=== PATIENT | female | born 1945 | race Caucasian/White ===

== ENCOUNTER 2021-12-05 03:32 | Inpatient (IN) | payer MEDICARE, OTHER ==
[~2021-12-05] VITALS: Ht 182.8 cm; Wt 101.7 kg
[2021-12-05] MEDS ORDERED: MELO15TA39 (03:43)
[2021-12-05] MEDS ORDERED: SIMV20TA26 (03:43)
[2021-12-05] MEDS ORDERED: METO50TA7 (03:43)
[2021-12-05] MEDS ORDERED: AMOX1TAB12 (03:43)
[2021-12-05] MEDS ORDERED: FURO20TA4 (03:43)
[2021-12-05] MEDS ORDERED: FERR325T24 (03:43)
[2021-12-05] MEDS ORDERED: RAMI10CA69 (03:43)
[2021-12-05] MEDS ORDERED: ASPIRIN 81 MG CHEW (CHILDREN'S ASA) PO ONE (03:45)
--- NOTE | 2021-12-05 03:51 | ED Cardiac General ---
History of Present Illness General Chief Complaint: Cardiac/General Problems Stated Complaint: RACING HR Nursing Triage Note: C/O RAPID HR X90MIN WAKING PT UP FROM SLEEP. Source: patient History of Present Illness Date Seen by Provider: Dec 05, 2021 Initial Comments PT ARRIVES VIA POV FROM HOME WITH STATES ABOUT 90 MINUTES AGO, SHE WOKE UP WITH A RAPID HEART RATE NO HISTORY OF SIMILAR, HAS HTN, BUT NO OTHER HISTORY OF CARDIAC PROBLEMS AND HAS NEVER SEEN A CARD IOLOGIST. NO CHEST PAIN NO SHORTNESS OF BREATH NO SWEATS NO DIZZINESS OR SYNCOPE NO GI SYMPTOMS NO CHANGE IN CHRONIC LEG SWELLING PT DID TEST POSITIVE FOR COVID 1 1/2 WEEKS AGO WAS PRESCRIBED PAXLOVID ON 11/26/21 AND COMPLETED THE TREATMENT, THE AUGMENTIN 11/28/21 "FOR SINUSES" STATES SHE STOPPED TAKING THE AUGMENTIN AFTER A FEW DAYS, AND IS NOT TAKING ANY OVER THE COUNTER SINUS/ALLERGY/COLD MEDICATIONS. WAS SEEN AT [facility]/WALK IN [facility]INIC INITIALLY--HAD FEVER AND COUGH/CONGESTION. RX FOR THE AUGMENTIN WAS CALLED IN BY [facility]. SHE STATES ALL THOSE SYMPTOMS HAVE SINCE RESOLVED ALSO WAS ILL AND TESTED +, HIS SYMPTOMS HAVE ALSO RESOLVED PT HAS HAD COVID-19 VACCINE X 4. ASA po SEED SPECIALIST: No PCP: DR. GROSS [place] Allergies and Home Medications Allergies Coded Allergies: codeine (Verified Allergy, Unknown, 12/05/21) Patient Home Medication List Amoxicillin/Potassium Clav (Amox Tr-K Clv 875-125 mg Tab) 875 Mg-125 Mg Tablet, (Reported) Entered as Reported by: MEI DUGGAN on 12/05/21342 Last Action: New Order Ferrous Sulfate (Ferosul) 325 Mg (65 Mg Iron) Tablet, (Reported) Entered as Reported by: MEI DUGGAN on 12/05/21342 Last Action: New Order Furosemide (Furosemide) 20 Mg Tablet, (Reported) Entered as Reported by: MEI DUGGAN on 12/05/21342 Last Action: New Order Meloxicam (Meloxicam) 15 Mg Tablet, (Reported) Entered as Reported by: MEI DUGGAN on 12/05/21342 Last Action: New Order Metoprolol Succinate (Metoprolol Succinate) 50 Mg Tab.er.24h, (Reported) Entered as Reported by: MEI DUGGAN on 12/05/21342 Last Action: New Order Ramipril (Ramipril) 10 Mg Capsule, (Reported) Entered as Reported by: MEI DUGGAN on 12/05/21342 Last Action: New Order Simvastatin (Simvastatin) 20 Mg Tablet, (Reported) Entered as Reported by: MEI DUGGAN on 12/05/21342 Last Action: New Order Review of Systems Review of Systems Constitutional: no symptoms reported; No diaphoresis, No dizziness, No malaise, No weakness EENTM: No Symptoms Reported Respiratory: No Symptoms Reported; Denies Shortness of Air Cardiovascular: See HPI; Denies Chest Pain; Irregular Heart Rate; Denies Lightheadedness; Palpitations Gastrointestinal: No Symptoms Reported Genitourinary: No Symptoms Reported Musculoskeletal: no symptoms reported Skin: no symptoms reported Psychiatric/Neurological: No Symptoms Reported Endocrine: No Symptoms Reported Hematologic/Lymphatic: No Symptoms Reported Past Leieoeq-Shkhuf-Paythq Hx Patient Social History Tobacco Use?: No Substance use?: No Alcohol Use?: No Pt feels they are or have been: No Immunizations Up To Date Second COVID19 Vaccination Aniceto: X2 Past Medical History Surgery/Hospitalization HX: HTN, HIGH CHOLESTEROL Respiratory: No Cardiac: Yes Chronic Edema/Swelling, High Cholesterol, Hypertension Neurological: No Genitourinary: No Gastrointestinal: No Musculoskeletal: No Endocrine: No HEENT: No Cancer: No Psychosocial: No Integumentary: No Blood Disorders: Yes (ANEMIA) Physical Exam Vital Signs Vital Signs - First Documented 12/05/21 03:37 Temp 36.7 Pulse 118 Resp 16 B/P (MAP) 178/90 (119) Pulse Ox 97 O2 Delivery Room Air Capillary Refill : Less Than 3 Seconds Height, Weight, BMI Height: '" Weight: lbs. oz. kg; 28.00 BMI Method: General Appearance: No Apparent Distress, WD/WN, Anxious HEENT: PERRL/EOMI Neck: Full Range of Motion, Normal Inspection, Non Tender, Supple; No Carotid Bruit, No JVD Respiratory: Normal Breath Sounds, No Accessory Muscle Use, No Respiratory Distress Cardiovascular: No Edema, No JVD, No Murmur, Normal Peripheral Pulses, Irreg ularly Irregular, Tachycardia Gastrointestinal: Non Tender, Soft Extremity: Normal Capillary Refill, Normal Inspection, Normal Range of Motion, Non Tender, No Calf Tenderness, No Pedal Edema Neurologic/Psychiatric: Alert, Oriented x3, No Motor/Sensory Deficits, 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, Other (MILDLY ANXIOUS) Skin: Normal Color, Warm/Dry Progress/Results/Core Measures Results/Orders Lab Results Laboratory Tests Test 12/05/21 03:47 Range/Units White Blood Count 9.4 4.3-11.0 10^3/uL Red Blood Count 4.30 3.80-5.11 10^6/uL Hemoglobin 12.6 11.5-16.0 g/dL Hematocrit 37 35-52 % Mean Corpuscular Volume 85 80-99 fL Mean Corpuscular Hemoglobin 29 25-34 pg Mean Corpuscular Hemoglobin Concent 34 32-36 g/dL Red Cell Distribution Width 13.9 10.0-14.5 % Platelet Count 342 130-400 10^3/uL Mean Platelet Volume 9.4 9.0-12.2 fL Immature Granulocyte % (Auto) 1 % Neutrophils (%) (Auto) 66 42-75 % Lymphocytes (%) (Auto) 21 12-44 % Monocytes (%) (Auto) 7 0-12 % Eosinophils (%) (Auto) 5 0-10 % Basophils (%) (Auto) 1 0-10 % Neutrophils # (Auto) 6.2 1.8-7.8 10^3/uL Lymphocytes # (Auto) 2.0 1.0-4.0 10^3/uL Monocytes # (Auto) 0.7 0.0-1.0 10^3/uL Eosinophils # (Auto) 0.4 H 0.0-0.3 10^3/uL Basophils # (Auto) 0.1 0.0-0.1 10^3/uL Immature Granulocyte # (Auto) 0.1 0.0-0.1 10^3/uL Prothrombin Time 12.7 12.2-14.7 SEC INR Comment 0.9 0.8-1.4 Activated Partial Thromboplast Time 39 H 24-35 SEC D-Dimer 0.56 H 0.00-0.49 UG/ML Sodium Level 132 L 135-145 MMOL/L Potassium Level 3.6 3.6-5.0 MMOL/L Chloride Level 98 98-107 MMOL/L Carbon Dioxide Level 21 21-32 MMOL/L Anion Gap 13 5-14 MMOL/L Blood Urea Nitrogen 12 7-18 MG/DL Creatinine 1.00 0.60-1.30 MG/DL Estimat Glomerular Filtration Rate 59 BUN/Creatinine Ratio 12 Glucose Level 144 H 70-105 MG/DL Calcium Level 9.9 8.5-10.1 MG/DL Corrected Calcium 9.8 8.5-10.1 MG/DL Magnesium Level 1.8 1.6-2.4 MG/DL Total Bilirubin 0.5 0.1-1.0 MG/DL Aspartate Amino Transf (AST/SGOT) 25 5-34 U/L Alanine Aminotransferase (ALT/SGPT) 28 0-55 U/L Alkaline Phosphatase 61 40-136 U/L Troponin I < 0.028 <0.028 NG/ML B-Type Natriuretic Peptide 32.6 <100.0 PG/ML Total Protein 7.8 6.4-8.2 GM/DL Albumin 4.1 3.2-4.5 GM/DL TSH [place] Testing 1.24 0.35-4.94 UIU/ML My Orders Orders - LISANDRO ÁLVAREZ DO Ed Iv/Invasive Line Start (12/05/21 03:39) Ekg Tracing (12/05/21 03:39) O2 (12/05/21 03:39) Monitor-Rhythm Ecg Trace Only (12/05/21 03:39) Bnp Zachary (12/05/21 03:39) Cbc With Automated Diff (12/05/21 03:39) Comprehensive Metabolic Panel (12/05/21 03:39) Magnesium (12/05/21 03:39) Protime With Inr (12/05/21 03:39) Partial Thromboplastin Time (12/05/21 03:39) Thyroid Analyzer (12/05/21 03:39) Troponin I [place] (12/05/21 03:39) Chest 1 View, Ap/Pa Only (12/05/21 03:39) Fibrin Degradation Products (12/05/21 03:44) Aspirin Chewable Tablet (Baby Aspirin Ch (12/05/21 03:45) Enoxaparin Injection (Lovenox Injection) (12/05/21 04:00) Diltiazem Injection (Cardizem Injection) (12/05/21 04:00) Ed Iv/Invasive Line Start (12/05/21 03:49) Ns Iv 1000 Ml (Sodium Chloride 0.9%) (12/05/21 04:00) Ekg Tracing (12/05/21 04:03) Diltiazem Drip Pre-Mix (Cardizem Drip Pr (12/05/21 04:30) Ct Angio Chest W (12/05/21 04:35) Medications Given in ED Current Medications Medications Dose Ordered Sig/Carley Route Start Time Stop Time Status Last Admin Dose Admin Aspirin 324 mg ONCE ONCE PO 12/05/21 03:45 12/05/21 03:46 DC 12/05/21 03:55 324 MG Diltiazem HCl 20 mg ONCE ONCE IVP 12/05/21 04:00 12/05/21 04:01 DC 12/05/21 03:55 20 MG Enoxaparin Sodium 100 mg ONCE ONCE SC 12/05/21 04:00 12/05/21 04:01 DC 12/05/21 03:57 100 MG Vital Signs/I&O 12/05/21 12/05/21 03:37 03:55 Temp 36.7 Pulse 118 118 Resp 16 B/P (MAP) 178/90 (119) 178/90 Pulse Ox 97 O2 Delivery Room Air Blood Pressure Mean: 119 Progress Progress Note : Progress Note GIVEN ASPIRIN AND LOVENOX GIVEN CARDIZEM BOLUS Initial ECG Impression Date: Dec 05, 2021 Initial ECG Impression Time: 03:44 Initial ECG Rate: 118 Initial ECG Rhythm: A Fib/Flutter Initial ECG Impression: Nonspecific Changes, Atrial Fibrillation w/RVR Initial ECG Comparisson: No Previous ECG Available EKG : EKG Time: 04:37 Rate: 78 Rhythm: A Fib/Flutter Diagnostic Imaging Comments CXR--NO ACUTE PROCESS, PENDING RADIOLOGIST REVIEW Reviewed: Reviewed by Me Departure Impression Primary Impression: New onset atrial fibrillation Additional Impression: Atrial fibrillation with rapid ventricular response Departure-Patient Inst. Referrals: TERRA GROSS MD (PCP/Family) Primary Care Physician LISANDRO ÁLVAREZ DO Dec 05, 2021 03:51
[2021-12-05 03:55] VITALS: BP 178/90
[2021-12-05 03:55] LABS: BASOPHILS # (AUTO) 0.1 10^3/uL (0.0-0.1); BASOPHILS % (AUTO) 1 % (0-10); EOSINOPHILS # (AUTO) 0.4 10^3/uL (0.0-0.3); EOSINOPHILS % (AUTO) 5 % (0-10); HEMATOCRIT 37 % (35-52); HEMOGLOBIN 12.6 g/dL (11.5-16.0); LYMPHOCYTES % (AUTO) 21 % (12-44); MEAN CORPUSCULAR HEMOGLOBIN 29 pg (25-34); MEAN CORPUSCULAR HGB CONC 34 g/dL (32-36); MEAN CORPUSCULAR VOLUME 85 fL (80-99); MEAN PLATELET VOLUME 9.4 fL (9.0-12.2); MONOCYTES # (AUTO) 0.7 10^3/uL (0.0-1.0); MONOCYTES % (AUTO) 7 % (0-12); NEUTROPHILS # (AUTO) 6.2 10^3/uL (1.8-7.8); NEUTROPHILS % (AUTO) 66 % (42-75); PLATELET COUNT 342 10^3/uL (130-400); WHITE BLOOD COUNT 9.4 10^3/uL (4.3-11.0)
[2021-12-05] MEDS ORDERED: ENOXAPARIN 100 MG/1 ML (LOVENOX) SYR SC ONE (04:00)
[2021-12-05] MEDS ORDERED: NS IV 1000 ML 1,000 ML IV SCH ×2 (04:00→05:30)
[2021-12-05 04:07] LABS: ALBUMIN 4.1 GM/DL (3.2-4.5); CHLORIDE 98 MMOL/L (98-107); POTASSIUM 3.6 MMOL/L (3.6-5.0); SODIUM 132 MMOL/L (135-145)
[2021-12-05 04:09] LABS: CALCIUM 9.9 MG/DL (8.5-10.1)
[2021-12-05 04:10] LABS: GLUCOSE 144 MG/DL (70-105); TOTAL PROTEIN 7.8 GM/DL (6.4-8.2)
[2021-12-05 04:11] LABS: CARBON DIOXIDE 21 MMOL/L (21-32); FIBRIN DEGRADATION PRODUCTS 0.56 UG/ML (0.00-0.49); INR 0.9 (0.8-1.4); PROTHROMBIN TIME PATIENT 12.7 SEC (12.2-14.7)
[2021-12-05 04:12] LABS: BILIRUBIN,TOTAL 0.5 MG/DL (0.1-1.0)
[2021-12-05 04:13] LABS: ALKALINE PHOSPHATASE 61 U/L (40-136); GFR ESTIMATED 59
[2021-12-05 04:14] LABS: BUN/CREATININE RATIO 12
[2021-12-05 04:16] LABS: ALANINE AMINOTRANSFERASE 28 U/L (0-55); MAGNESIUM 1.8 MG/DL (1.6-2.4)
[2021-12-05] MEDS ORDERED: dilTIAZem DRIP PRE-MIX 125 ML IV SCH (04:30)
[2021-12-05 04:39] LABS: TSH (THYROID ANALYZER) 1.24 UIU/ML (0.35-4.94)
[2021-12-05] MEDS ORDERED: HOLD METFORMIN - RECEIVED CONTRAST 20 ML VIAL IV SCH (05:15)
[2021-12-05] MEDS ORDERED: NS 100 ML (IVPB) BAG IV ONE (05:15)
[2021-12-05] MEDS ORDERED: IOHEXOL 350 MG/ML 100 ML (OMNIPAQUE 350) VIAL IV ONE (05:15)
[2021-12-05] MEDS ORDERED: NS IV 500 ML 500 ML IV PRN (05:30)
[2021-12-05] MEDS ORDERED: dilTIAZem DRIP 125 MG/125 ML DRIP IV SCH (05:45)
[2021-12-05] MEDS ORDERED: POTASSIUM CL 10MEQ/50ML IVPB 50 ML IV SCH (06:00)
[2021-12-05] MEDS ORDERED: KCL 20 MEQ TAB (K-DUR) PO SCH (06:00)
[2021-12-05] MEDS ORDERED: MAGNESIUM 1 GM/100 ML IVPB 100 ML IV SCH (06:00)
--- NOTE | 2021-12-05 06:10 | Diagnostic Imaging Report ---
PROCEDURE: CT angiography of the chest with contrast. TECHNIQUE: Multiple contiguous axial images were obtained through the chest after uneventful bolus administration of intravenous contrast. 3D reconstructed CTA MIP acquisitions were also performed. Auto Exposure Controls were utilized during the CT exam to meet ALARA standards for radiation dose reduction. INDICATION: Tachycardia. Chest pain. COMPARISON: Chest radiograph performed earlier the same date. FINDINGS: This helical CT pulmonary angiogram is diagnostic to the subsegmental level branches of the pulmonary artery and demonstrates no pulmonary emboli. The heart is prominent. There is no pericardial effusion. The thoracic aorta has a normal appearance without aneurysm or dissection. There is no axillary, mediastinal, or hilar adenopathy. Calcified granuloma is seen in the right middle lobe. No focal consolidations. No central endobronchial obstructing lesion. No suspicious pulmonary nodules. No pleural effusion or pneumothorax. Osseous structures appear normal. A small hiatal hernia is seen. The gallbladder is surgically absent. A nodule seen in the right adrenal gland measuring 1.5 cm. IMPRESSION: 1. No acute pulmonary embolus. Negative CT chest. 2. Small hiatal hernia. 3. Nodule in the right adrenal gland measuring 1.5 cm, most suggestive of a benign adrenal adenoma. If indicated, consider follow-up with adrenal protocol MRI or CT on outpatient basis. 4. Mild cardiomegaly. Dictated by: Dictated on workstation # [id number]
--- NOTE | 2021-12-05 07:36 | Tele-ICU Progress Note ---
Progress Note video rounds completed 75 y/o female who was covid positive and treated with paxlovid as an OP Presented with afib RVR, placed on diltiazem drip Has now converted to NSR PE: HR 85 NSR PLANS : as per cardiology Focused Exam Height, Weight, BMI Height: '" Weight: lbs. oz. kg; 30.43 BMI Method: Labs Laboratory Tests 12/05/21 03:47 Results Results/Procedures Labs Laboratory Tests 12/05/21 03:47 Patient resulted labs reviewed. Results Labs Labs Laboratory Tests 12/05/21 03:47: White Blood Count 9.4, Red Blood Count 4.30, Hemoglobin 12.6, Hematocrit 37, Mean Corpuscular Volume 85, Mean Corpuscular Hemoglobin 29, Mean Corpuscular Hemoglobin Concent 34, Red Cell Distribution Width 13.9, Platelet Count 342, Mean Platelet Volume 9.4, Immature Granulocyte % (Auto) 1, Neutrophils (%) (Aut o) 66, Lymphocytes (%) (Auto) 21, Monocytes (%) (Auto) 7, Eosinophils (%) (Auto) 5, Basophils (%) (Auto) 1, Neutrophils # (Auto) 6.2, Lymphocytes # (Auto) 2.0, Monocytes # (Auto) 0.7, Eosinophils # (Auto) 0.4H, Basophils # (Auto) 0.1, Immature Granulocyte # (Auto) 0.1, Prothrombin Time 12.7, INR Comment 0.9, Activated Partial Thromboplast Time 39H, D-Dimer 0.56H, Sodium Level 132L, Potassium Level 3.6, Chloride Level 98, Carbon Dioxide Level 21, Anion Gap 13, Blood Urea Nitrogen 12, Creatinine 1.00, Estimat Glomerular Filtration Rate 59, BUN/Creatinine Ratio 12, Glucose Level 144H, Calcium Level 9.9, Corrected Calcium 9.8, Magnesium Level 1.8, Total Bilirubin 0.5, Aspartate Amino Transf (AST/SGOT) 25, Alanine Aminotransferase (ALT/SGPT) 28, Alkaline Phosphatase 61, Troponin I < 0.028, B-Type Natriuretic Peptide 32.6, Total Protein 7.8, Albumin 4.1, TSH [place] Testing 1.24 VIKASH JARA MD Dec 05, 2021 07:36
--- NOTE | 2021-12-05 07:41 | Diagnostic Imaging Report ---
EXAMINATION: Chest 1 view HISTORY: Palpitations. COMPARISON: None available. FINDINGS: The lung volumes are normal. No focal consolidation is seen. No large pleural effusion or pneumothorax is seen. The cardiomediastinal silhouette is prominent. No acute osseous abnormality is seen. IMPRESSION: 1. Cardiomegaly. No overt pulmonary edema. Dictated by: Dictated on workstation # [id number]
[2021-12-05] MEDS ORDERED: ASPIRIN E.C. 81 MG (ECOTRIN) TAB PO SCH (09:00)
[2021-12-05] MEDS ORDERED: KCL 20 MEQ TAB (K-DUR) PO ONE (09:00)
[2021-12-05] MEDS ORDERED: APIXABAN 5 MG (ELIQUIS) TABLET PO SCH (10:00)
--- NOTE | 2021-12-05 11:20 | Consultation - Hospitalist ---
HPI History of Present Illness: HPI/Chief Complaint CC: New onset AF RVR HPI: This is a 75-year-old female with Dr. Rosa who recently recovered from COVID 10 days ago who presented with new onset atrial fibrillation with rapid ventricular response. Patient appears to be doing much better now and Dr. Reaves work on discharge medications of cardiac meds. Patient has no hypoxia and no evidence of any long hauler COVID. Source: patient, family Exam Limitations: no limitations Date Seen 12/05/21 Attending Physician Darrick Rosa MD PCP Admitting Physician: Sophie Reaves MD [facility] Attending Physician: Sophie Reaves MD [facility] Referring Physician Date of Admission Dec 05, 2021 at 04:35 Home Medications & Allergies Home Medications Reviewed patient Home Medication Reconciliation performed by pharmacy medication reconciliations platform power technician and/or nursing. Patients Allergies have been reviewed. Allergies Allergies Coded Allergies codeine (Verified Allergy, Unknown, 12/05/21) Past Ecssgwq-Iylzei-Sayhdv Hx Patient Social History Marrital Status: Employed/Student: retired Tobacco Use?: No Smoking Status: Never a Smoker Smokeless Tobacco Frequency: Never a User Use of E-Cig and/or Vaping Smith: Never a User Substance use?: No Alcohol Use?: No Pt feels they are or have been: No Immunizations Up To Date Second COVID19 Vaccination Aniceto: X2 Tetanus Booster (TDap): Unknown Current Status status: No status: No Advance Directives: No Communicates: Verbally Primary Language: [place]er Preferred Spoken Language: [place]er Is interpretation needed?: No Sensory deficits: Vision impairment Implanted or Applied Medical D: None Past Medical History Atrial Fibrillation, Chronic Edema/Swelling, High Cholesterol, Hypertension Blood Disorders: Yes (ANEMIA) Review of Systems Constitutional: see HPI, malaise, weakness Physical Exam Physical Exam Vital Signs Vital Signs - First Documented 12/05/21 03:37 Temp 36.7 Pulse 118 Resp 16 B/P (MAP) 178/90 (119) Pulse Ox 97 O2 Delivery Room Air Capillary Refill : Less Than 3 Seconds Height, Weight, BMI Height: '" Weight: lbs. oz. kg; 30.43 BMI Method: General Appearance: No Apparent Distress, WD/WN, Anxious HEENT: PERRL/EOMI Neck: Full Range of Motion, Normal Inspection, Non Tender, Supple; No Carotid Bruit, No JVD Respiratory: Normal Breath Sounds, No Accessory Muscle Use, No Respiratory Distress Cardiovascular: No Edema, No JVD, No Murmur, Normal Peripheral Pulses, Irregularly Irregular, Tachycardia Gastrointestinal: Non Tender, Soft Extremity: Normal Capillary Refill, Normal Inspection, Normal Range of Motion, Non Tender, No Calf Tenderness, No Pedal Edema Neurologic/Psychiatric: Alert, Oriented x3, No Motor/Sensory Deficits, 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 Assessment/Plan Assessment and Plan Assess & Plan/Chief Complaint Assessment: New onset atrial fibrillation Recent COVID infection 10 days ago Plan: Discharge home Dr. Reaves will do cardiac meds at discharge Clinical Quality Measures AMI/AHF: ASA po Prior to arrival: DARON Arndt DO Dec 05, 2021 11:20
--- NOTE | 2021-12-05 11:20 | Cardiology History & Physical ---
HPI-Cardiology Cardiology H&P Date of Admission 12/05/21 Primary Care Physician Admitting Physician: Sophie Reaves MD [facility] Attending Physician: Sophie Reaves MD [facility] Attending Physician Darrick Rosa MD Consulting Physician [facility] CC: Palpitations HPI: 75 yo woman who awoke with palpitations and was seen in the ER and admitted with new onset of A Fib and RVR. Has not had such symptoms before. Denies cp or syncope or swelling. Feels well currently. No malaise or focal weakness. Reports being diagnosed with Covid-19 a week ago. Denies cough, fever, chills Review of Systems-Cardiology Review of Systems Constitutional: No malaise, No tiredness, No weight loss, No weight gain Eyes: No vision change Ears/Nose/Throat: No ear discharge, No nasal drainage, No recent hearing loss Respiratory: As described under HPI Cardiovascular: As described under HPI Gastrointestinal: No diarrhea, No nausea, No vomiting Genitourinary: No dysuria, No hematuria, No urine frequency changes, No urine coloration changes Musculoskeletal: No back pain, No joint pain Skin: No rash, No ulcerations Psychiatric/Neurological: No seizure, No focal weakness, No syncope Hematologic: No bleeding abnormalities NJU-Hjvavl-Ytcbxw Hx Patient Social History Smoking Status: Never a Smoker Have you traveled recently?: No Alcohol Use?: No Pt feels they are or have been: No Past Medical History PMH As described under Assessment. Family Medical History Family Medical History: Does not report fam h/o early CAD or SCD Allergies and Home Medications Allergies Coded Allergies: codeine (Verified Allergy, Unknown, 12/05/21) Patient Home Medication List Home Medication List Reviewed: Yes Amoxicillin/Potassium Clav (Amox Tr-K Clv 875-125 mg Tab) 875 Mg-125 Mg Tablet, (Reported) Entered as Reported by: MEI DUGGAN on 12/05/21342 Last Action: New Order Ferrous Sulfate (Ferosul) 325 Mg (65 Mg Iron) Tablet, (Reported) Entered as Reported by: MEI DUGGAN on 12/05/21342 Last Action: New Order Furosemide (Furosemide) 20 Mg Tablet, (Reported) Entered as Reported by: MEI DUGGAN on 12/05/21342 Last Action: New Order Meloxicam (Meloxicam) 15 Mg Tablet, (Reported) Entered as Reported by: MEI DUGGAN on 12/05/21342 Last Action: New Order Metoprolol Succinate (Metoprolol Succinate) 50 Mg Tab.er.24h, (Reported) Entered as Reported by: MEI DUGGNA on 12/05/21342 Last Action: New Order Ramipril (Ramipril) 10 Mg Capsule, (Reported) Entered as Reported by: MEI DUGGAN on 12/05/21342 Last Action: New Order Simvastatin (Simvastatin) 20 Mg Tablet, (Reported) Entered as Reported by: MEI DUGGAN on 12/05/21342 Last Action: New Order Physical Exam-Cardiology Physical Exam Vital Signs/I&O 12/05/21 12/05/21 12/05/21 12/05/21 03:37 03:55 04:52 05:10 Temp 36.7 36.7 36.5 Pulse 118 118 87 Resp 16 20 B/P (MAP) 178/90 (119) 178/90 150/73 Pulse Ox 97 98 O2 Delivery Room Air Room Air Room Air 12/05/21 12/05/21 12/05/21 12/05/21 05:10 05:15 05:37 06:00 Pulse 103 96 84 B/P (MAP) 139/103 (115) 147/103 (118) Pulse Ox 98 96 97 O2 Delivery Room Air Room Air Room Air 12/05/21 12/05/21 12/05/21 12/05/21 07:00 07:00 07:55 08:00 Temp 36.2 Pulse 73 73 B/P (MAP) 135/71 (92) Pulse Ox 96 98 O2 Delivery Room Air Room Air 12/05/21 12/05/21 12/05/21 12/05/21 08:00 09:00 10:00 11:00 Pulse 99 91 76 94 Resp 16 B/P (MAP) 139/76 (97) 134/76 (95) 132/71 (91) 152/90 (110) Pulse Ox 98 96 95 99 O2 Delivery Room Air Room Air Room Air Room Air Capillary Refill : Less Than 3 Seconds Constitutional: AAO x 3, well-developed, well-nourished HEENT: EOMI, hearing is well preserved; No xanthelasmas are seen Neck: No carotid bruit; carotid pulses are 2 + bilaterally, with good upstrokes Respiratory: No accessory muscle use; other (good, bilat air entry) Cardiovascular: irregularly irregular, S1 and S2, systolic murmur (Soft JOE at card base) Gastrointestinal: No tender; soft; No guarding, No rebound; audible bowel sydnee nds Extremities: No clubbing, No cyanosis, No significant edema Neurologic/Psychiatric: oriented x 3, other (moves all limbs equally) Skin: No rash, No ulcerations Data Review Labs Laboratory Tests 12/05/21 03:47: White Blood Count 9.4, Red Blood Count 4.30, Hemoglobin 12.6, Hematocrit 37, Mean Corpuscular Volume 85, Mean Corpuscular Hemoglobin 29, Mean Corpuscular Hemoglobin Concent 34, Red Cell Distribution Width 13.9, Platelet Count 342, Mean Platelet Volume 9.4, Immature Granulocyte % (Auto) 1, Neutrophils (%) (Auto) 66, Lymphocytes (%) (Auto) 21, Monocytes (%) (Auto) 7, Eosinophils (%) (Auto) 5, Basophils (%) (Auto) 1, Neutrophils # (Auto) 6.2, Lymphocytes # (Auto) 2.0, Monocytes # (Auto) 0.7, Eosinophils # (Auto) 0.4H, Basophils # (Auto) 0.1, Immature Granulocyte # (Auto) 0.1, Prothrombin Time 12.7, INR Comment 0.9, Activated Partial Thromboplast Time 39H, D-Dimer 0.56H, Sodium Level 132L, Potassium Level 3.6, Chloride Level 98, Carbon Dioxide Level 21, Anion Gap 13, Blood Urea Nitrogen 12, Creatinine 1.00, Estimat Glomerular Filtration Rate 59, BUN/Creatinine Ratio 12, Glucose Level 144H, Calcium Level 9.9, Corrected Calcium 9.8, Magnesium Level 1.8, Total Bilirubin 0.5, Aspartate Amino Transf (AST/SGOT) 25, Alanine Aminotransferase (ALT/SGPT) 28, Alkaline Phosphatase 61, Troponin I < 0.028, B-Type Natriuretic Peptide 32.6, Total Protein 7.8, Albumin 4.1, TSH [place] Testing 1.24 12/05/21 07:32: Troponin I < 0.028 12/05/21 10:10: Troponin I < 0.028 Laboratory Tests 12/05/21 03:47 A/P-Cardiology Assessment/Admission Diagnosis PAF with RVR (first diagnosed on 12/05/21) Hypertension Impaired fasting glucose vs DM II Hyperlipidemia Covid 19 in late Nov 2021 Admission Status: Observation Discussion and Recomendations * Long-acting dilt for vent rate control * Apixaban for stroke prophylaxis * Hospitalist consult to eval for Covid 19 and noncardiac issues * Echo * D/c today and close outpt f/u * I had a detailed discussion with her and her family and answered questions Clinical Quality Measures AMI/AHF: ASA po Prior to arrival: SOPHIE Zhou MD FACP FACC CCDS Dec 05, 2021 11:20
[2021-12-05] MEDS ORDERED: DILT240C91 PO (11:31)
[2021-12-05] MEDS ORDERED: APIX5TAB PO (11:31)
--- NOTE | 2021-12-05 11:32 | Discharge Inst-Cardiology ---
Discharge Inst-Cardiac Discharge Medications New Medications: Apixaban (Eliquis) 5 Mg Tablet 5 MG PO BID for 30 Days, #60 TAB 5 Refills Diltiazem HCl (Diltiazem 24Hr ER) 240 Mg Cap.er.24h 240 MG PO DAILY for 30 Days, #30 CAP 5 Refills Continued Medications: Amoxicillin/Potassium Clav (Amox Tr-K Clv 875-125 mg Tab) 875 Mg-125 Mg Tablet Ferrous Sulfate (Ferosul) 325 Mg (65 Mg Iron) Tablet Metoprolol Succinate (Metoprolol Succinate) 50 Mg Tab.er.24h Simvastatin (Simvastatin) 20 Mg Tablet Discontinued Medications: Furosemide (Furosemide) 20 Mg Tablet Meloxicam (Meloxicam) 15 Mg Tablet Ramipril (Ramipril) 10 Mg Capsule MONIQUE FORTE MD FACP FAC CCDS Dec 05, 2021 11:32
== END 2021-12-05 12:50 | disposition home or self-care (01) | DRG 310 ==
LOC: EDUNIT# 03:32 → ER 03:35 → ICU 04:35
PROVIDERS: ADMIT Internal Medicine Cardiovascular Disease; ATTEND Internal Medicine Cardiovascular Disease
DX: I48.0 Paroxysmal atrial fibrillation (principal); I10 Essential (primary) hypertension; E78.00 Pure hypercholesterolemia, unspecified; H54.7 Unspecified visual loss; D64.9 Anemia, unspecified; R73.01 Impaired fasting glucose; Z86.16 Personal history of COVID-19; Z88.5 Allergy status to narcotic agent
CPT/HCPCS: 36415; 71045; 71275; 80053; 83735; 83880; 84443; 84484; 85025; 85379; 85610; 85730; 87081; 93005; 93041; 93306